=== PATIENT | male | born 1970 | race Caucasian/White ===

== ENCOUNTER 2020-08-01 11:38 | Observation (INO) | payer OTHER ==
[~2020-08-01] VITALS: Ht 195.6 cm; Wt 78.0 kg
--- NOTE | 2020-08-01 12:01 | NUR ---
PT IS RESTING ON THE STRETCHER WITH INTERM CHEST PAIN THAT IS LOCATED IN THE LEFT SIDE OF CHEST. PT STATES HAVING IT FOR A MONTH AND WORSENED TODAY. NITRO 0.4 MG WAS GIVEN BY EMS WITH STARTING PAIN OF 9/10 AND PAIN AFTER ADMIN IS 8/10. PT STATES HE CANNOT TAKE IN A DEEP BREATH WITHOUT HAVING PAIN. AOX4. LUNGS CLEAR BILAT. AFIBRILE.
[2020-08-01] MEDS ORDERED: PROMETHAZINE HC50 MG PO (12:06)
[2020-08-01 12:07] LABS: HEMATOCRIT 44.3 % (39.0-50.0); HEMOGLOBIN 14.3 g/dl (14.0-18.0); IMMATURE GRANULOCYTES 0.3 % (0.0-5.0); MEAN CELL VOLUME 91.3 fL CALC (80.0-100.0); MEAN CORPUSCULAR HGB 29.5 pG CALC (26.0-32.0); MEAN CORPUSCULAR HGB CONC 32.3 g/dL CAL (32.0-36.0); NEUT# 5.67 thou/uL (1.82-7.42); RED BLOOD COUNT 4.85 mill/uL (4.70-6.10); RED CELL DISTRI WIDTH 13.7 % (11.5-15.5)
[2020-08-01] MEDS ORDERED: DOCUSATE SOD100 MG PO (12:07)
[2020-08-01] MEDS ORDERED: ONDANSETRON ODT8 MG SL (12:09)
[2020-08-01] MEDS ORDERED: OXYCODONE15 MG PO (12:10)
[2020-08-01] MEDS ORDERED: ACETAMINOPHEN PO (12:11)
[2020-08-01] MEDS ORDERED: IBUPROFEN600 MG PO (12:12)
[2020-08-01] MEDS ORDERED: GABAPENTIN100 MG PO (12:12)
[2020-08-01] MEDS ORDERED: PROTONIX40 M2 PO (12:13)
[2020-08-01] MEDS ORDERED: TAMSULOSIN HCL0.4 MG PO (12:13)
[2020-08-01 12:14] LABS: ALBUMIN 4.5 g/dL (3.2-5.0); ALKALINE PHOSPHATASE 68 u/l (38-126); ANION GAP 13 (6-22 (CALC)); BILIRUBIN, TOTAL 0.5 mg/dL (0.0-1.4); BUN 8 mg/dL (9-20); BUN/CREATININE RATIO 10 (12-20 (CALC)); CARBON DIOXIDE 25 mmol/l (22-30); CHLORIDE 101 mmol/l (95-108); CREATININE 0.8 mg/dL (0.7-1.3); GFR > 60 ML/MIN (>=60 (CALC)); GFR FOR AFR.AMER. > 60 ML/MIN (>=60 (CALC)); LIPASE 373 u/l (23-300); SGOT/AST 20 u/l (17-59); SODIUM 136 mmol/l (137-146); TOTAL PROTEIN 8.3 g/dL (6.3-8.2)
[2020-08-01] MEDS ORDERED: NARCAN4 MG/0.1 M (12:14)
[2020-08-01] MEDS ORDERED: KEPPRA750 M2 PO (12:15)
[2020-08-01] MEDS ORDERED: [UNRECOGNIZED DRUG - OTHER] PO (12:16)
[2020-08-01] MEDS ORDERED: METOPROLOL SUCC50 MG PO (12:17)
[2020-08-01] MEDS ORDERED: MONTELUKAST SOD10 MG PO (12:18)
[2020-08-01] MEDS ORDERED: PEG 3350 PO (12:19)
[2020-08-01] MEDS ORDERED: RIZATRIPTAN BEN10 M1 SL (12:19)
[2020-08-01] MEDS ORDERED: TOPIRAMATE100 MG PO (12:20)
--- NOTE | 2020-08-01 13:27 | NUR ---
MD AT BEDSIDE DISCUSSING RESULTS AND ADVISE FOR FURTHER PLAN OF CARE. PTS QUESTIONS ARE BEING ANSWERED AND HE IS VERIFYING UNDERSTANDING.
--- NOTE | 2020-08-01 14:30 | NUR ---
PT STATES THAT HE WAS IN CONTINUED PAIN AND MD NOTIFIED. HARMONICA MAKER. PT NOTIFIED OF PENDING ADMISSION.
--- NOTE | 2020-08-01 15:24 | NUR ---
REPORT GIVEN TO NURSE IN MED SURG
--- NOTE | 2020-08-01 15:37 | NUR ---
PT ARRIVED VIA STRECTHER ACCOMPANIED BY OXANA QUESADA. A&O X4. C/O OF NON-RADIATING MID STERNAL CP DESCRIBED "AN ELEPHANT SITTING ON MY CHEST". CP REPORTED TO FEEL WORSE WHEN TRYING TO INHALE DEEPLY. VSS; TEMP 97.1, BP 95/59, HR 68, RR 20 AND O2 VIA ROOM AIR 99%. EXPLAINED TO PT NEGATIVE RESULTS IN TROPONIN, PT VERBALIZED UNDERSTANDING. PT DENIES ANY PAST MEDICAL CARDIAC HX. STATES HE HAS PANCREATIC CANCER WHICH HE HAD SURGERY FOR AT [facility]; REMOVAL OF PART OF THE PANCREAS ALONG WITH REMOVAL OF SPLEEN. HEALING LAPAROSCOPIC INCISIONS NOTED TO ABD. OTHER SURGERIES INCLUDE RT HIP, HERNIA, AND A LEVEL 4 SPINAL FUSION. REPORTS TO SMOKE 1/2 PPD, ATTEMPTING TO QUIT AT THIS TIME. DENIES ANY STRENOUS ACTIVITY THAT COULD HAVE CAUSED MUSCLE INJURY. DENIES ANY ALCOHOL OR DRUG CONSUMPTION. HAS REC FLU AND PNA VACCINE LAST SEASON. OBTAINED HIS COVID VACCINE FIRST DOSE LAST SUNDAY. SKIN INTACT. DENIES ANY PAIN WITH URINATION. BM YEST, STATES HE USES COLACE. CLEAR BREATH SOUNDS UPON AUSCULTATION. VICE PRESIDENT FIXED INCOME IN PLACE. #20 RAC HEALTHY AND PATENT; IVF TO BE INITIATED AT 50 ML/HR. ORIENTED PT TO ROOM. CALL LIGHT WITHIN REACH.
--- NOTE | 2020-08-01 15:43 | NUR ---
PT TRANSPORTED TO MED SURG STABLE AND IN NO DISTRESS. CARE ASSUMED TO MED SURG NURSE. Admission Note Report Given to: NURSE Transported by: Wheelchair X Stretcher Transported with: X Nurse Transporter X Patent IV O2 X Trucker Location: ICU X MS2
--- NOTE | 2020-08-01 16:26 | NUR ---
DR TRACEY NOTIFIED OF PTS CP. ORDER OBTAINED FOR 500 ML NS BOLUS X1, CHANGE IV FLUIDS TO 100 ML/HR , AND ONE TIME DOSE OF 0.4MG SUBLINGUAL NITRO TO BE ADMINISTERED. ORDER VERFIED, WRITTEN AD FAXED STAT TO [facility].
--- NOTE | 2020-08-01 16:50 | NUR ---
ORDER OBTAINED FOR RT SIDE EKG BY DR TRACEY. FERNANDO WALLS AT BEDSIDE OBTAINING EKG.
--- NOTE | 2020-08-01 16:54 | NUR ---
SUBLINGUAL GIVEN AND 500 ML BOLUS INITIATED. CALL LIGHT WITHIN REACH.
--- NOTE | 2020-08-01 17:47 | NUR ---
ORDER OBTAINED TO HOLD BP MEDICATIONS. ORDER FAXED TO PHARMACY.
[2020-08-01 19:30] VITALS: BP 97/63
[2020-08-01 20:30] VITALS: BP 101/64
--- NOTE | 2020-08-01 20:40 | NUR ---
PATIENT RESTING IN BED AT THIS TIME-AWAKE ALERT AND ANGRY-STATES THAT "HE DOESN'T KNOW WHY HE STAYED HERE-THEY AREN'T DOING ANYTHING FOR HIM".PATIENT STATES THAT HE CONT TO HAVE CHEST PAIN/PRESSURE 7/10 ON PAIN SCALE. SKIN IS WARM AND DRY. COLOR IS GOOD. VS ARE [id number], HR-73, RESPS ARE EVEN AND UNLABORED. O2 SAT IS 97% ON ROOM AIR., TROPS SO FAR HAVE BEEN NEG-0.012. WILL GET ANOTHER TROP AT 2200. PATIENT WAS MEDICATED FOR PAIN WITH ROXICODONE 15MG PO ORDERED FOR PAIN. TELE MONITOR IN PLACE AND LAST READING WAS SR-69. HEART RHYTHM IS WNL. LUNGS ARE CLEAR. NO PERIPHERAL EDEMA NOTED. PULSES ARE PALPABLE. ABD IS SOFT WITH ACTIVE BS. PATIENT WITH HEALING SMALL INCISIONS FROM RECENT ABD SURGERY-STATES THAT HE HAD PANCREATIC CANCER AND A PORTION OF HIS PANCREASE WAS REMOVED WELL HIS SPLEEN. STATES THAT HE "GOT CICI" AND WILL NOT NEED ANY FURTHER TREATMENT-NO CHEMO, NO RADIATION. DENIES ANY DIFFICULTY WITH URINATION. IVF PATENT AND INFUSING VIA RAC SITE AT 100CC/HR. SITE IS HEALTHY AT THIS TIME. SAFETY PRECAUTIONS REINFORCED. CALL LIGHT IN REACH. WILL CONT TO MONITOR.
--- NOTE | 2020-08-01 22:04 | NUR ---
PATIENT RESTING IN BED AND APPEARS TO BE SLIGHTLY MORE COMFORTABLE AT THIS TIME. SLIGHT IMPROVEMENT FROM THE PAIN PER PATIENT AFTER RECIEVING THE ROXICODONE. IVF NS PATENT AND INFUSING AT 100CC/HR VIA RAC SITE. TELE MONITOR IN PLACE. TROP BEING DRAWN AT THIS TIME. CALL LIGHT IN REACH. WILL CONT TO MONITOR.
--- NOTE | 2020-08-01 23:33 | NUR ---
PATIENT UP AND USING URINAL-VOIDED 450CC OF SHREYAS URINE. VS TAKEN AND RECORDED. IVF PATENT AND INFUSING VIA RAC SITE AT 100CC/HR. TELE MONITOR IN PLACE. ASKING FOR PAIN MEDS AGAIN BUT TOO EARLY AT THIS TIME. CALL LIGHT IN REACH. WILL CONT TO MONITOR.
[2020-08-01 23:50] VITALS: BP 103/66
--- NOTE | 2020-08-02 02:36 | NUR ---
PATIENT RESTING IN BED AT THIS TIME. TELE MONITOR IN PLACE. IVF PATENT AND INFUSING VIA RAC SITE AT 100CC/HR. PATIENT MEDICATED FOR 7/10 CHEST PRESSURE WITH ROXICODONE 15MG PO. CALL LIGHT IN REACH. WILL CONT TO MONITOR.
[2020-08-02 04:00] VITALS: BP 98/61
--- NOTE | 2020-08-02 06:04 | NUR ---
PATIENT RESTING IN BED. VOIDING QS SHREYAS URINE IN URINAL. IVF PATENT AND INFUSING VIA RAC SITE AT 100CC/HR. TELE MONITOR IN PLACE. CALL LIGHT IN REACH. WILL CONT TO MONITOR.
--- NOTE | 2020-08-02 07:00 | NUR ---
PT REPORT RECEIVED FROM NIGHT NURSEDEB.
[2020-08-02 07:58] LABS: ANION GAP 10 (6-22 (CALC)); BUN 8 mg/dL (9-20); BUN/CREATININE RATIO 11 (12-20 (CALC)); CARBON DIOXIDE 21 mmol/l (22-30); CHLORIDE 110 mmol/l (95-108); CREATININE 0.7 mg/dL (0.7-1.3); GFR > 60 ML/MIN (>=60 (CALC)); GFR FOR AFR.AMER. > 60 ML/MIN (>=60 (CALC)); SODIUM 137 mmol/l (137-146)
[2020-08-02 07:59] LABS: POTASSIUM 3.9 mmol/l (3.5-5.1)
--- NOTE | 2020-08-02 08:00 | NUR ---
PT WAS FOUND RESTING IN BED;PT IS A&O X3;VS AND ASSESSMENT WERE COMPLETED;PT IS REPORTING LOWER BACK PAIN AND RT HIP PAIN OF 7/10;PT MEDICATED WITH ROXICODONE 15MG PO;HEART SOUNDS ARE REGULAR IN RATE AND RHYTHM;TELE IS IN PLACE;LUNG SOUNDS ARE CLEAR;RESPIRATIONS ARE EVEN AND UNLABORED ON RA;#20G IV IN RAC IS RUNNING NS @100ML/HR;IV SITE IS FREE OF COMPLICATIONS AT THIS TIME;SAFETY PRECAUTIONS IN PLACE;SEIZURE PRECAUTIONS IN PLACE,SIDE RAILS PADDED;CALL LIGHT WITHIN REACH;BED IN LOWEST POSITION;WILL CONTINUE TO MONITOR.
[2020-08-02 08:10] VITALS: BP 105/64
[2020-08-02] MEDS ORDERED: ASPIRIN 81 LOW81 MG PO (09:57)
--- NOTE | 2020-08-02 11:10 | NUR ---
Discharge instructions given. Patient verbalizes understanding of same. Discharged in stable condition via Wheelchair to Home with family. All belongings sent with pt. DISCHARGE PACKET AND PRESCRIPTION WERE GIVEN TO PT;DISCHARGE INSTRUCTIONS AND MEDICATION WERE EXPLAINED TO PT;PT HAD NO FURTHER QUESTIONS OR CONCERNS;SIGNATURE WAS OBTAINED;TELE WAS REMOVED;IV WAS REMOVED WITH NO COMPLICATIONS AND CATHETER INTACT. PT WAS TRANSPORTED TO [facility] VIA IN STABLE CONDITION ACCOMPANIED BY STAFF;ALL PT BELONGINGS WERE SENT WITH PT;PT WILL BE TRANSPORTED HOME WITH FAMILY.
== END 2020-08-02 11:10 | disposition home or self-care (01) | DRG 313 ==
LOC: ED 11:38 → ED-I 13:31 → ED 14:00 → MS2 14:01
PROVIDERS: Family Medicine; Nurse Practitioner; ADMIT Internal Medicine; ATTEND Internal Medicine
DX: R07.9 Chest pain, unspecified (principal); C25.9 Malignant neoplasm of pancreas, unspecified; I10 Essential (primary) hypertension; G40.909 Epilepsy, unspecified, not intractable, without status epilepticus; G89.4 Chronic pain syndrome; G62.9 Polyneuropathy, unspecified; E87.6 Hypokalemia; K21.9 Gastro-esophageal reflux disease without esophagitis; F17.200 Nicotine dependence, unspecified, uncomplicated; Z98.1 Arthrodesis status; Z90.411 Acquired partial absence of pancreas; Z20.822 Contact with and (suspected) exposure to COVID-19
CPT/HCPCS: G0378; J1650; Q9967